=== PATIENT | female | born 1975 | race Caucasian/White ===

== ENCOUNTER 2018-02-16 17:45 | Emergency (ER) | payer OTHER ==
[~2018-02-16] VITALS: Ht 157.5 cm; Wt 59.0 kg
[~2018-02-16 17:45] MED LIST: ALBU.083IS IH; ALBU90I INH; ALBU90OI INH; AMOX500 PO; AZIT250 PO; CLIN150 PO; CODACE30 PO; FLUSAL2505 IH; HYDACE5 PO; PRED10 PO; TIOT18 IH; TRAM50 PO; TRIAOI IH
[2018-02-16 18:29] LABS: BASOPHILS ABSOLUTE AUTO 0.06 K/mm3 (0.00-0.23); BASOPHILS PERCENT AUTO 0 % (0-2); EOSINOPHILS ABSOLUTE AUTO 0.15 K/mm3 (0.00-0.68); EOSINOPHILS PERCENT AUTO 1 % (0-6); Hematocrit 28.1 % (33.0-51.0); Hemoglobin 8.1 g/dL (11.5-16.0); IMMATURE GRAN ABSOLUTE AUTO 0.11 K/mm3 (0.00-0.10); IMMATURE GRAN PERCENT AUTO 1 % (0-1); LYMPHOCYTES ABSOLUTE AUTO 1.95 K/mm3 (0.84-5.20); LYMPHOCYTES PERCENT AUTO 12 % (21-46); MONOCYTES ABSOLUTE AUTO 1.05 K/mm3 (0.16-1.47); MONOCYTES PERCENT AUTO 7 % (4-13); Mean Corpuscular HGB 19.5 pg (26.0-34.0); Mean Corpuscular HGB Conc 28.8 g/dL (31.5-36.5); Mean Corpuscular Volume 68 fL (80-100); Mean Platelet Volume 10.2 fL (9.1-12.4); NEUTROPHILS ABSOLUTE AUTO 12.78 K/mm3 (1.96-9.15); NEUTROPHILS PERCENT AUTO 79 % (41-73); Platelet Count 389 K/mm3 (150-400); RDW Coefficient Variation 16.3 % (11.7-14.2); RDW Standard Deviation 39.7 fL (35.1-46.3); Red Blood Cell Count 4.16 M/mm3 (3.80-5.20)
[2018-02-16 18:48] LABS: Alanine Aminotransfer (ALT/SGP 16 U/L (12-78); Albumin/Globulin Ratio 0.7 (0.8-1.8); Alk Phos 78 U/L (50-136); Anion Gap 8 mmol/L (6-16); Aspartate Aminotrans (AST/SGOT 11 U/L (12-37); Bilirubin, Total 0.1 mg/dL (0.1-1.0); Blood Urea Nitrogen 7 mg/dL (8-24); Bun/Creatinine Ratio 7.9 (12.0-20.0); CO2, Blood 26 mmol/L (21-32); Calcium, Blood 8.9 mg/dL (8.5-10.1); Chloride, Blood 105 mmol/L (98-108); Creatinine, Blood 0.88 mg/dL (0.40-1.00); Globulin, Blood 4.4 g/dL (2.2-4.0); Glomerular Filtration Rate >60 (60-); Glucose, Blood 89 mg/dL (70-99); Potassium, Blood 3.9 mmol/L (3.5-5.5); Sodium, Blood 139 mmol/L (136-145); Total Protein, Blood 7.4 g/dL (6.4-8.2)
[2018-02-16] MEDS ORDERED: Norco 5-325 Ta1 EACH PO (20:30)
[2018-02-16] MEDS ORDERED: Bactrim Ds Tab1 EACH PO (20:40)
[2018-02-16 20:43] LABS: Source, Urine Clean Catch
[2018-02-16 20:45] LABS: Bilirubin, Urine Neg (Neg); Blood, Urine 5+ (Neg); Glucose Qualitative, Urine Neg (Neg); Ketones, Urine Neg (Neg); Leukocyte Esterase, Urine 1+ (Neg); Nitrite, Urine Pos (Neg); Protein, Urine 2+ (Neg); Specific Gravity, Urine 1.025 (1.003-1.022); Urobilinogen, Urine NORM (Normal)
[2018-02-16 20:50] LABS: Appearance, Urine Hazy (Clear); Color, Urine Yellow (P-Yellow)
[2018-02-16 20:51] LABS: Bacteria Many /hpf; Red Blood Cells, Urine Rare /hpf (0-2); Squamous Epithelial Cells Few /hpf (Few)
[2018-02-16 20:52] LABS: Mucus Light (0-Heavy)
== END 2018-02-16 20:56 | disposition home or self-care (01) ==
LOC: ER 17:45
PROVIDERS: Emergency Medicine; Internal Medicine
DX: N94.6 Dysmenorrhea, unspecified (principal); N39.0 Urinary tract infection, site not specified; D64.9 Anemia, unspecified; D72.829 Elevated white blood cell count, unspecified; Z88.5 Allergy status to narcotic agent; Z88.8 Allergy status to other drugs, medicaments and biological substances; Z87.891 Personal history of nicotine dependence
CPT/HCPCS: 36415; 76830; 76856; 80053; 81001; 81025; 85025; 86850; 86900; 86901; 87077; 87086; 87186; 96374; 99284-25; J1885

== ENCOUNTER 2021-04-25 01:01 | Inpatient (IN) | payer OTHER ==
[~2021-04-25] VITALS: Ht 157.5 cm; Wt 64.4 kg
[~2021-04-25 01:01] MED LIST changes: +Bactrim Ds Tab1 EACH PO; +Norco 5-325 Ta1 EACH PO
[2021-04-25 01:26] LABS: Source, Urine Clean Catch
[2021-04-25 01:31] LABS: Bilirubin, Urine Neg (Neg); Blood, Urine Neg (Neg); Glucose Qualitative, Urine Neg (Neg); Ketones, Urine Neg (Neg); Leukocyte Esterase, Urine 1+ (Neg); Nitrite, Urine Pos (Neg); Protein, Urine 1+ (Neg); Specific Gravity, Urine 1.015 (1.003-1.022); Urobilinogen, Urine NORM (Normal)
[2021-04-25 01:32] LABS: Appearance, Urine Hazy (Clear); Color, Urine Yellow (P-Yellow)
[2021-04-25 01:42] LABS: Bacteria Many /hpf; Red Blood Cells, Urine Not Seen /hpf (0-2); Squamous Epithelial Cells Few /hpf (Few)
[2021-04-25 02:01] LABS: Alanine Aminotransfer (ALT/SGP 25 U/L (12-78); Albumin, Blood 3.6 g/dL (3.4-5.0); Albumin/Globulin Ratio 0.8 (0.8-1.8); Alk Phos 77 U/L (50-136); Anion Gap 5 mmol/L (6-16); Aspartate Aminotrans (AST/SGOT 22 U/L (12-37); Bilirubin, Total 0.4 mg/dL (0.1-1.0); Blood Urea Nitrogen 15 mg/dL (8-24); Bun/Creatinine Ratio 16.4 (12.0-20.0); CO2, Blood 26 mmol/L (21-32); Calcium, Blood 9.9 mg/dL (8.5-10.1); Chloride, Blood 105 mmol/L (98-108); Creatinine, Blood 0.91 mg/dL (0.40-1.00); Globulin, Blood 4.5 g/dL (2.2-4.0); Glomerular Filtration Rate >60 (60-); Glucose, Blood 86 mg/dL (70-99); Potassium, Blood 3.5 mmol/L (3.5-5.5); Sodium, Blood 136 mmol/L (136-145); Total Protein, Blood 8.1 g/dL (6.4-8.2)
[2021-04-25 02:03] LABS: BASOPHILS ABSOLUTE AUTO 0.06 K/mm3 (0.00-0.23); BASOPHILS PERCENT AUTO 0 % (0-2); EOSINOPHILS PERCENT AUTO 0 % (0-6); Hematocrit 31.5 % (33.0-51.0); IMMATURE GRAN ABSOLUTE AUTO 0.36 K/mm3 (0.00-0.10); IMMATURE GRAN PERCENT AUTO 2 % (0-1); LYMPHOCYTES ABSOLUTE AUTO 0.96 K/mm3 (0.84-5.20); LYMPHOCYTES PERCENT AUTO 4 % (21-46); MONOCYTES ABSOLUTE AUTO 1.27 K/mm3 (0.16-1.47); MONOCYTES PERCENT AUTO 5 % (4-13); Mean Corpuscular HGB Conc 28.6 g/dL (31.5-36.5); Mean Corpuscular Volume 67 fL (80-100); Mean Platelet Volume 11.1 fL (9.1-12.4); NEUTROPHILS ABSOLUTE AUTO 21.06 K/mm3 (1.96-9.15); NEUTROPHILS PERCENT AUTO 89 % (41-73); Platelet Count 264 K/mm3 (150-400); RDW Standard Deviation 39.8 fL (35.1-46.3); Red Blood Cell Count 4.74 M/mm3 (3.80-5.20); White Blood Cell Count 23.71 K/mm3 (4.00-11.30)
[2021-04-25 03:43] LABS: Influenza A, PCR NEGATIVE (NEGATIVE); Influenza B, PCR NEGATIVE (NEGATIVE); Resp Syncytial Virus, PCR NEGATIVE (NEGATIVE)
[2021-04-25 04:16] LABS: SARS-Cov-2 (COVID-19) PCR, MMC POSITIVE (NEGATIVE)
== END 2021-04-25 10:42 | disposition left against medical advice (07) | DRG 871 ==
LOC: ER 01:01 → ERHOLD 03:11
PROVIDERS: Student in an Organized Health Care Education/Training Program; ADMIT Internal Medicine
PROC: 8E0ZXY6 Isolation (ICD-10-PCS; principal; 2021-04-25)
DX: A41.9 Sepsis, unspecified organism (principal); U07.1 COVID-19; N12 Tubulo-interstitial nephritis, not specified as acute or chronic; I10 Essential (primary) hypertension; D53.9 Nutritional anemia, unspecified; Z28.21 Immunization not carried out because of patient refusal; J45.909 Unspecified asthma, uncomplicated; F17.210 Nicotine dependence, cigarettes, uncomplicated; Z85.41 Personal history of malignant neoplasm of cervix uteri; Z88.5 Allergy status to narcotic agent; Z88.8 Allergy status to other drugs, medicaments and biological substances; Z98.890 Other specified postprocedural states; Z90.89 Acquired absence of other organs
CPT/HCPCS: 0241U; 36415; 74176; 80053; 81001; 83605; 83690; 85025; 87040; 87077; 87086; 87186; 96365; 96375; 99285-25; A9270; G0378; J0696; J1885; J7030

== ENCOUNTER 2021-10-13 20:13 | Inpatient (IN) | payer OTHER ==
[~2021-10-13] VITALS: Ht 157.5 cm; Wt 63.5 kg
[2021-10-13 21:36] LABS: BASOPHILS ABSOLUTE AUTO 0.09 K/mm3 (0.00-0.23); BASOPHILS PERCENT AUTO 0 % (0-2); EOSINOPHILS ABSOLUTE AUTO 0.03 K/mm3 (0.00-0.68); EOSINOPHILS PERCENT AUTO 0 % (0-6); Hematocrit 29.6 % (33.0-51.0); Hemoglobin 8.2 g/dL (11.5-16.0); IMMATURE GRAN ABSOLUTE AUTO 0.19 K/mm3 (0.00-0.10); IMMATURE GRAN PERCENT AUTO 1 % (0-1); LYMPHOCYTES ABSOLUTE AUTO 1.22 K/mm3 (0.84-5.20); LYMPHOCYTES PERCENT AUTO 5 % (21-46); MONOCYTES ABSOLUTE AUTO 1.74 K/mm3 (0.16-1.47); MONOCYTES PERCENT AUTO 8 % (4-13); Mean Corpuscular HGB 18.2 pg (26.0-34.0); Mean Corpuscular HGB Conc 27.7 g/dL (31.5-36.5); Mean Corpuscular Volume 66 fL (80-100); Mean Platelet Volume 10.4 fL (9.1-12.4); NEUTROPHILS ABSOLUTE AUTO 19.59 K/mm3 (1.96-9.15); NEUTROPHILS PERCENT AUTO 86 % (41-73); Platelet Count 398 K/mm3 (150-400); RDW Coefficient Variation 18.9 % (11.7-14.2); Red Blood Cell Count 4.51 M/mm3 (3.80-5.20); White Blood Cell Count 22.86 K/mm3 (4.00-11.30)
[2021-10-13 22:04] LABS: Alanine Aminotransfer (ALT/SGP 26 U/L (12-78); Albumin, Blood 3.6 g/dL (3.4-5.0); Albumin/Globulin Ratio 0.8 (0.8-1.8); Alk Phos 80 U/L (50-136); Anion Gap 5 mmol/L (6-16); Aspartate Aminotrans (AST/SGOT 13 U/L (12-37); Bilirubin, Total 0.4 mg/dL (0.1-1.0); Blood Urea Nitrogen 12 mg/dL (8-24); Bun/Creatinine Ratio 14.1 (12.0-20.0); CO2, Blood 27 mmol/L (21-32); Calcium, Blood 9.8 mg/dL (8.5-10.1); Chloride, Blood 102 mmol/L (98-108); Creatinine, Blood 0.85 mg/dL (0.40-1.00); Globulin, Blood 4.4 g/dL (2.2-4.0); Glomerular Filtration Rate >60 (60-); Glucose, Blood 119 mg/dL (70-99); Potassium, Blood 3.9 mmol/L (3.5-5.5); Sodium, Blood 134 mmol/L (136-145)
[2021-10-13 23:07] LABS: Source, Urine Clean Catch
[2021-10-13 23:12] LABS: Bilirubin, Urine Neg (Neg); Blood, Urine 2+ (Neg); Glucose Qualitative, Urine Neg (Neg); Ketones, Urine Neg (Neg); Leukocyte Esterase, Urine Neg (Neg); Nitrite, Urine Neg (Neg); Protein, Urine Neg (Neg); Urobilinogen, Urine NORM (Normal)
[2021-10-13 23:48] LABS: Appearance, Urine Clear (Clear); Color, Urine Yellow (P-Yellow)
[2021-10-13 23:50] LABS: Bacteria Many /hpf; Red Blood Cells, Urine 0-2 /hpf (0-2); Squamous Epithelial Cells Few /hpf (Few); White Blood Cells, Urine Rare /hpf (0-5)
--- NOTE | 2021-10-14 05:21 | NUR ---
PT ARRIVED TO FLOOR VIA GURNEY AT 0430. PT MOANING STATES SHE IS IN PAIN. TRANSFERS TO BED SBA. ORIENTED TO ROOM. VSS. BOTH IV ACCESSES INFILTRATED, SEAN FROM ICU ABLE TO START A POWER GLIDE IN [place]. FLUIDS RUNNING PER EMAR. PT APPEARS TO BE SLEEPING AT THIS TIME. BED ALARM IS ON, CALL LIGHT IN REACH WILL MONTIOR FOR CHANGES, AND ORDER UPDATES.
--- NOTE | 2021-10-14 05:52 | NUR ---
UPDATED NOTED, PATIENT APPEARS TO BE RESTING, IN NO APPARENT DISTRESS AT THIS TIME. LR BOLUS RUNNING. WILL MEDICATE PRN FOR PAIN.
--- NOTE | 2021-10-14 06:34 | NUR ---
PT NEW ADMIT THIS AM FOR OVARIAN ABCESS. PT HR TACHY 100 PER TELE MONITOR, PT DENIES CP/PRESSURE. ABD MOD DISTENDED. PT REP PAIN+PRESSURE IN RLQ. PT SALINA FEW SIPS OF WATER, DENEIS N/V, IVF CONT. PAIN MGD PER EMAR. THIS RN AT BEDSIDE W/NUIRSING STUDENT ASSESSMENT, AGREE W/DOCUMENTATION.
[2021-10-14 08:57] LABS: BASOPHILS ABSOLUTE AUTO 0.05 K/mm3 (0.00-0.23); BASOPHILS PERCENT AUTO 0 % (0-2); EOSINOPHILS ABSOLUTE AUTO 0.01 K/mm3 (0.00-0.68); EOSINOPHILS PERCENT AUTO 0 % (0-6); Hematocrit 22.4 % (33.0-51.0); Hemoglobin 6.4 g/dL (11.5-16.0); IMMATURE GRAN ABSOLUTE AUTO 0.36 K/mm3 (0.00-0.10); IMMATURE GRAN PERCENT AUTO 2 % (0-1); LYMPHOCYTES ABSOLUTE AUTO 1.24 K/mm3 (0.84-5.20); LYMPHOCYTES PERCENT AUTO 5 % (21-46); MONOCYTES ABSOLUTE AUTO 1.91 K/mm3 (0.16-1.47); MONOCYTES PERCENT AUTO 8 % (4-13); Mean Corpuscular HGB 18.6 pg (26.0-34.0); Mean Corpuscular HGB Conc 28.6 g/dL (31.5-36.5); Mean Corpuscular Volume 65 fL (80-100); Mean Platelet Volume 10.3 fL (9.1-12.4); NEUTROPHILS ABSOLUTE AUTO 19.62 K/mm3 (1.96-9.15); NEUTROPHILS PERCENT AUTO 85 % (41-73); Platelet Count 279 K/mm3 (150-400); RDW Coefficient Variation 18.7 % (11.7-14.2); RDW Standard Deviation 44.2 fL (35.1-46.3); Red Blood Cell Count 3.44 M/mm3 (3.80-5.20); White Blood Cell Count 23.19 K/mm3 (4.00-11.30)
[2021-10-14 09:16] LABS: Anion Gap 4 mmol/L (6-16); Blood Urea Nitrogen 8 mg/dL (8-24); Bun/Creatinine Ratio 12.3 (12.0-20.0); CO2, Blood 26 mmol/L (21-32); Calcium, Blood 9.2 mg/dL (8.5-10.1); Chloride, Blood 107 mmol/L (98-108); Creatinine, Blood 0.65 mg/dL (0.40-1.00); Glomerular Filtration Rate >60 (60-); Glucose, Blood 106 mg/dL (70-99); Potassium, Blood 4.2 mmol/L (3.5-5.5); Sodium, Blood 137 mmol/L (136-145)
[2021-10-14 15:17] LABS: BASOPHILS ABSOLUTE AUTO 0.06 K/mm3 (0.00-0.23); BASOPHILS PERCENT AUTO 0 % (0-2); EOSINOPHILS ABSOLUTE AUTO 0.02 K/mm3 (0.00-0.68); EOSINOPHILS PERCENT AUTO 0 % (0-6); Hematocrit 21.7 % (33.0-51.0); Hemoglobin 6.1 g/dL (11.5-16.0); IMMATURE GRAN ABSOLUTE AUTO 0.48 K/mm3 (0.00-0.10); IMMATURE GRAN PERCENT AUTO 2 % (0-1); LYMPHOCYTES ABSOLUTE AUTO 1.23 K/mm3 (0.84-5.20); LYMPHOCYTES PERCENT AUTO 5 % (21-46); MONOCYTES ABSOLUTE AUTO 1.77 K/mm3 (0.16-1.47); MONOCYTES PERCENT AUTO 8 % (4-13); Mean Corpuscular HGB 18.5 pg (26.0-34.0); Mean Corpuscular HGB Conc 28.1 g/dL (31.5-36.5); Mean Corpuscular Volume 66 fL (80-100); Mean Platelet Volume 10.6 fL (9.1-12.4); NEUTROPHILS ABSOLUTE AUTO 19.51 K/mm3 (1.96-9.15); NEUTROPHILS PERCENT AUTO 85 % (41-73); Platelet Count 261 K/mm3 (150-400); RDW Coefficient Variation 18.7 % (11.7-14.2); Red Blood Cell Count 3.29 M/mm3 (3.80-5.20); White Blood Cell Count 23.07 K/mm3 (4.00-11.30)
--- NOTE | 2021-10-14 18:07 | NUR ---
SHIFT SUMMARY A/O X4. IND IN RM. ABDOMEN MODERATLY DISTENDED, PT REPORTS ABDOMEN FEELING ABOUT THE SAME WHEN ADMITTED. PAIN MEDICATION GIVEN 1X THIS AM, PT HAS BEEN SLEEPING MOST OF THE DAY. PHYSICIAN ORDERED 1X UNIT OF PACKED RED BLOOD CELLS THIS PM DUE TO LOW H&H, AWAITING BLOOD BANK AT THIS TIME. TELE DC'D. VOIDING AND TOLERATING PO INTAKE. PT REPORTS LESS VAGINAL BLEEDING THAN LAST NIGHT. WILL CONTINUE TO MONITOR AND REPORT TO ONCOMING RN.
--- NOTE | 2021-10-14 19:39 | NUR ---
TEMP: PT TEMP NOTED ELEVATED 100.1. SCHEDULED TYLENOL PREVIOUSLY GIVEN. DR ABRAHAM NOTIFIED, VITALS, MEDS AN BLOOD ORDER REV. OK TO GIVE PRBC SCHEDULED AND UPDATE UPDATE DR Noonan/LABS AFTER BLOOD COMPLETED.
--- NOTE | 2021-10-14 23:01 | NUR ---
DR ABRAHAM CALLED IN FOR UPDATE. ORDER TO ONLY INFUSE 1 UNIT OF PRBC TONIGHT AND REPEAT LABS IN AM.
[2021-10-15 05:46] LABS: BASOPHILS ABSOLUTE AUTO 0.08 K/mm3 (0.00-0.23); BASOPHILS PERCENT AUTO 0 % (0-2); EOSINOPHILS ABSOLUTE AUTO 0.08 K/mm3 (0.00-0.68); EOSINOPHILS PERCENT AUTO 0 % (0-6); Hematocrit 23.4 % (33.0-51.0); Hemoglobin 6.7 g/dL (11.5-16.0); IMMATURE GRAN ABSOLUTE AUTO 1.67 K/mm3 (0.00-0.10); IMMATURE GRAN PERCENT AUTO 7 % (0-1); LYMPHOCYTES ABSOLUTE AUTO 1.38 K/mm3 (0.84-5.20); LYMPHOCYTES PERCENT AUTO 6 % (21-46); MONOCYTES ABSOLUTE AUTO 1.99 K/mm3 (0.16-1.47); MONOCYTES PERCENT AUTO 8 % (4-13); Mean Corpuscular HGB 19.6 pg (26.0-34.0); Mean Corpuscular HGB Conc 28.6 g/dL (31.5-36.5); Mean Corpuscular Volume 68 fL (80-100); Mean Platelet Volume 10.4 fL (9.1-12.4); NEUTROPHILS ABSOLUTE AUTO 19.72 K/mm3 (1.96-9.15); NEUTROPHILS PERCENT AUTO 79 % (41-73); Platelet Count 227 K/mm3 (150-400); RDW Coefficient Variation 20.6 % (11.7-14.2); Red Blood Cell Count 3.42 M/mm3 (3.80-5.20); White Blood Cell Count 24.92 K/mm3 (4.00-11.30)
[2021-10-15 06:16] LABS: Alanine Aminotransfer (ALT/SGP 15 U/L (12-78); Albumin, Blood 2.3 g/dL (3.4-5.0); Albumin/Globulin Ratio 0.7 (0.8-1.8); Alk Phos 64 U/L (50-136); Anion Gap 5 mmol/L (6-16); Aspartate Aminotrans (AST/SGOT 8 U/L (12-37); Bilirubin, Total 0.5 mg/dL (0.1-1.0); Blood Urea Nitrogen 8 mg/dL (8-24); Bun/Creatinine Ratio 12.7 (12.0-20.0); CO2, Blood 23 mmol/L (21-32); Calcium, Blood 8.8 mg/dL (8.5-10.1); Chloride, Blood 111 mmol/L (98-108); Creatinine, Blood 0.63 mg/dL (0.40-1.00); Globulin, Blood 3.4 g/dL (2.2-4.0); Glomerular Filtration Rate >60 (60-); Glucose, Blood 94 mg/dL (70-99); Potassium, Blood 3.8 mmol/L (3.5-5.5); Sodium, Blood 139 mmol/L (136-145)
[2021-10-15 06:29] LABS: Total Protein, Blood 5.7 g/dL (6.4-8.2)
--- NOTE | 2021-10-15 07:25 | NUR ---
PT VSS IMPROVED AFTER UNIT OF BLOOD GIVEN. APPEARED TO SLEEP FOR MAJORITY OF NIGHT, AWAKENS EASILY TO VERBAL STIMULI. PT REP ABD PAIN IMPROVING, PAIN MGD W/TORADOL W/REP RELIEF. PT DENIES PAIN W/VOIDS. PT DRANK SOME CRANBERRY JUICE AND ATE YOGURT, DID REP EMESIS THIS AM. IVF AND ABX CONT PER ORDERS AM LABS REVIEWED W/ONCOMING RN.
--- NOTE | 2021-10-15 10:21 | NUR ---
AM MEDS PT EXPERIENCED N/V THIS AM. REFUSED ZOFRAN. ATTEMPTED TO GIVE PO MORNING MEDS INCLUDING ANTIBIOTICS x 3; CONTINUES TO DECLINE.
[2021-10-15 13:11] LABS: BASOPHILS ABSOLUTE AUTO 0.08 K/mm3 (0.00-0.23); BASOPHILS PERCENT AUTO 0 % (0-2); EOSINOPHILS ABSOLUTE AUTO 0.07 K/mm3 (0.00-0.68); EOSINOPHILS PERCENT AUTO 0 % (0-6); Hematocrit 29.7 % (33.0-51.0); Hemoglobin 8.7 g/dL (11.5-16.0); IMMATURE GRAN PERCENT AUTO 5 % (0-1); LYMPHOCYTES PERCENT AUTO 4 % (21-46); MONOCYTES ABSOLUTE AUTO 2.51 K/mm3 (0.16-1.47); MONOCYTES PERCENT AUTO 9 % (4-13); Mean Corpuscular HGB 20.8 pg (26.0-34.0); Mean Corpuscular HGB Conc 29.3 g/dL (31.5-36.5); Mean Corpuscular Volume 71 fL (80-100); NEUTROPHILS ABSOLUTE AUTO 24.21 K/mm3 (1.96-9.15); NEUTROPHILS PERCENT AUTO 82 % (41-73); Platelet Count 228 K/mm3 (150-400); RDW Coefficient Variation 22.5 % (11.7-14.2); RDW Standard Deviation 56.2 fL (35.1-46.3); Red Blood Cell Count 4.18 M/mm3 (3.80-5.20); White Blood Cell Count 29.67 K/mm3 (4.00-11.30)
--- NOTE | 2021-10-15 19:33 | NUR ---
SHIFT SUMMARY CONTINUES TO BE QUIET, BUT REPORTS IMPROVED PAIN MANAGEMENT. INT NAUSEA w/ ONLY EMESIS THIS AM. URINE LIGHTENING SLIGHTLY. TAKING BITES & SIPS OF FLUIDS. 1 UNIT PRBC GIVEN w/ IMPROVED H&H. PT REPORTS FEELING LESS TIRED THIS AFTERNON. LIGHT SPOTTING TO AKIRA PADS.
[2021-10-16 01:08] LABS: CHLAMYDIA TRACHOMATIS, NAA Negative (Negative)
--- NOTE | 2021-10-16 03:59 | NUR ---
SHIFT SUMMARY, PT AOX4, ABLE TO TOLERATE PO INTAKE OF CLEARS. DENIES N/V. PATIENT RATES ABD PAIN A 7/10, MEDICATED PER EMAR. PT AMBULATES IN ROOM INDEPENDENTLY. SIGNIFIGANT OTHER IN TO VISIT AT SHIFT CHANGE. ABLE TO PASS GAS, NO BM MEDICATED WITH MILK OF MAG AND STOOL SOFTENER. VOIDING THROUGHOUT SHIFT, URINE IS DARK COLORED. PT REPORTS SCANT AMOUNT OF VAGINAL BLEEDING. AKIRA PADS IN ROOM. VSS STABLE, CALL LIGHT IN REACH, WILL MONITOR FOR CHANGES.
[2021-10-16 04:54] LABS: BASOPHILS ABSOLUTE AUTO 0.05 K/mm3 (0.00-0.23); BASOPHILS PERCENT AUTO 0 % (0-2); EOSINOPHILS ABSOLUTE AUTO 0.11 K/mm3 (0.00-0.68); EOSINOPHILS PERCENT AUTO 1 % (0-6); Hematocrit 25.7 % (33.0-51.0); Hemoglobin 7.6 g/dL (11.5-16.0); IMMATURE GRAN ABSOLUTE AUTO 0.82 K/mm3 (0.00-0.10); IMMATURE GRAN PERCENT AUTO 4 % (0-1); LYMPHOCYTES ABSOLUTE AUTO 1.19 K/mm3 (0.84-5.20); LYMPHOCYTES PERCENT AUTO 5 % (21-46); MONOCYTES ABSOLUTE AUTO 1.77 K/mm3 (0.16-1.47); MONOCYTES PERCENT AUTO 8 % (4-13); Mean Corpuscular HGB 20.5 pg (26.0-34.0); Mean Corpuscular HGB Conc 29.6 g/dL (31.5-36.5); Mean Corpuscular Volume 70 fL (80-100); Mean Platelet Volume 10.5 fL (9.1-12.4); NEUTROPHILS PERCENT AUTO 82 % (41-73); Platelet Count 225 K/mm3 (150-400); RDW Standard Deviation 53.8 fL (35.1-46.3); White Blood Cell Count 21.84 K/mm3 (4.00-11.30)
--- NOTE | 2021-10-16 06:29 | NUR ---
DR STEVE CALLED IN FOR UPDATE. PT VS, LABS, PAIN AND I/O REVIEWED. NO NEW ORDERS.
--- NOTE | 2021-10-16 06:33 | NUR ---
PT VSS T/O NIGHT. PAIN MGD W/TYLENOL AND TORADOL W/REP RELIEF. PT DECLINED NARCOTIC PAIN MEDS. PT SALINA SIPS OF CL, NO SIG PO. BT HYPER ACTIVE THIS AM, PT REP NO FLATUS AND BM YET. URINE DARK ROCHELLE, VAGINAL BLEEDING DECREASING, PT CHANGED AKIRA PAD X2. IVF AND ABX CONT PER ORDERS.
[2021-10-16] MEDS ORDERED: DOCU100 PO (09:44)
[2021-10-16] MEDS ORDERED: ACET500 PO (09:44)
[2021-10-16] MEDS ORDERED: DOXY100 PO (09:45)
[2021-10-16] MEDS ORDERED: METR500 PO (09:46)
[2021-10-16] MEDS ORDERED: IBUP800 PO (09:47)
[2021-10-16] MEDS ORDERED: FERSU300 PO (09:47)
[2021-10-16] MEDS ORDERED: ONDA4ODT MM (09:47)
--- NOTE | 2021-10-16 10:29 | NUR ---
DISCHARGE MINIMAL ABDOMINAL PAIN, WELL MANAGED W/ TYLENOL PER EMAR. DENIES N/V, TOLERATING PO DIET. VOIDING WELL, MINIMAL VAGINAL BLEEDING. AMBULATING WELL INDEPENDENTLY. DISCUSSED DISCHARGE INSTRUCTIONS & SENT W/ PATIENT. PATIENT DECLINED W/C, WALKED OUT W/ FAMILY MEMBER.
== END 2021-10-16 10:26 | disposition home or self-care (01) | DRG 872 ==
LOC: ER 20:13 → ERHOLD 20:14 → SURS 20:14
PROVIDERS: Obstetrics & Gynecology; Physician Assistant; Student in an Organized Health Care Education/Training Program; ADMIT Obstetrics & Gynecology
PROC: 30233N1 Transfusion of Nonautologous Red Blood Cells into Peripheral Vein, Percutaneous Approach (ICD-10-PCS; principal; 2021-10-14)
PROC: 3E03329 Introduction of Other Anti-infective into Peripheral Vein, Percutaneous Approach (ICD-10-PCS; 2021-10-14)
DX: A41.9 Sepsis, unspecified organism (principal); N12 Tubulo-interstitial nephritis, not specified as acute or chronic; N39.0 Urinary tract infection, site not specified; N70.92 Oophoritis, unspecified; J45.909 Unspecified asthma, uncomplicated; N94.6 Dysmenorrhea, unspecified; K59.09 Other constipation; I10 Essential (primary) hypertension; F17.200 Nicotine dependence, unspecified, uncomplicated; B96.20 Unspecified Escherichia coli [E. coli] as the cause of diseases classified elsewhere; Z86.16 Personal history of COVID-19; Z85.41 Personal history of malignant neoplasm of cervix uteri; Z90.89 Acquired absence of other organs; Z98.890 Other specified postprocedural states
CPT/HCPCS: 36415; 36430; 74177; 76830; 76856; 80048; 80053; 81001; 81025; 83605; 83690; 85025; 86850; 86900; 86901; 86923; 87040; 87077; 87086; 87186; 87491; 87591; 96365; 96366; 96367; 96375; 99285-25; A9270; C1751; G0378; J0696; J1170; J1885; J2270; J2765; J2916; J7030; J7040; J7050; J7120; P9016; Q9967

== ENCOUNTER → 2021-10-24 | Outpatient (CLI) | payer OTHER ==
[~2021-10-24] MED LIST changes: +ACET500 PO; +DOCU100 PO; +DOXY100 PO; +FERSU300 PO; +IBUP800 PO; +METR500 PO; +ONDA4ODT MM
[2021-10-27 15:07] LABS: HPV 16 Negative (Negative); HPV 18 Negative (Negative); HPV OTHER HR TYPES Negative (Negative)
== END | disposition home or self-care (01) ==
LOC: LAB 10:00 → LAB SHORT 10:00
PROVIDERS: Obstetrics & Gynecology
DX: Z01.419 Encounter for gynecological examination (general) (routine) without abnormal findings (principal)
CPT/HCPCS: 87624; G0123

== ENCOUNTER 2023-04-14 11:11 | Emergency (ER) | payer OTHER ==
[~2023-04-14] VITALS: Ht 157.5 cm; Wt 61.2 kg
[2023-04-14 12:45] LABS: BASOPHILS ABSOLUTE AUTO 0.09 K/mm3 (0.00-0.23); BASOPHILS PERCENT AUTO 1 % (0-2); EOSINOPHILS ABSOLUTE AUTO 0.18 K/mm3 (0.00-0.68); EOSINOPHILS PERCENT AUTO 2 % (0-6); Hematocrit 29.9 % (33.0-51.0); Hemoglobin 8.2 g/dL (11.5-16.0); IMMATURE GRAN ABSOLUTE AUTO 0.03 K/mm3 (0.00-0.10); IMMATURE GRAN PERCENT AUTO 0 % (0-1); LYMPHOCYTES PERCENT AUTO 16 % (21-46); MONOCYTES ABSOLUTE AUTO 1.01 K/mm3 (0.16-1.47); MONOCYTES PERCENT AUTO 11 % (4-13); Mean Corpuscular HGB 18.3 pg (26.0-34.0); Mean Corpuscular HGB Conc 27.4 g/dL (31.5-36.5); Mean Corpuscular Volume 67 fL (80-100); Mean Platelet Volume 10.8 fL (9.1-12.4); NEUTROPHILS PERCENT AUTO 69 % (41-73); Platelet Count 435 K/mm3 (150-400); RDW Coefficient Variation 16.2 % (11.7-14.2); RDW Standard Deviation 38.6 fL (35.1-46.3); Red Blood Cell Count 4.48 M/mm3 (3.80-5.20); White Blood Cell Count 9.21 K/mm3 (4.00-11.30)
[2023-04-14 13:13] LABS: Albumin, Blood 3.8 g/dL (3.4-5.0); Albumin/Globulin Ratio 0.9 (0.8-1.8); Bilirubin, Total 0.4 mg/dL (0.1-1.0); Calcium, Blood 9.9 mg/dL (8.5-10.1); Globulin, Blood 4.1 g/dL (2.2-4.0); Potassium, Blood 3.9 mmol/L (3.5-5.5); Total Protein, Blood 7.9 g/dL (6.4-8.2)
[2023-04-14] MEDS ORDERED: SUCR1 PO (16:11)
[2023-04-14] MEDS ORDERED: ONDA4ODT MM (16:11)
[2023-04-14] MEDS ORDERED: FAMO20 PO (16:11)
[2023-04-14 17:00] VITALS: BP 152/99
== END 2023-04-14 17:10 | disposition home or self-care (01) ==
LOC: ER 11:11
PROVIDERS: Physician Assistant
DX: R10.13 Epigastric pain (principal); R11.2 Nausea with vomiting, unspecified; J45.909 Unspecified asthma, uncomplicated; Z88.4 Allergy status to anesthetic agent; Z88.5 Allergy status to narcotic agent; Z79.899 Other long term (current) drug therapy
CPT/HCPCS: 76705; 80053; 81025; 83690; 85025; 93005; 93010; 96374; 96375; 99284-25; A9270; C9113; J1885; J2405

== ENCOUNTER → 2024-10-12 | Outpatient (CLI) | payer OTHER ==
[~2024-10-12] MED LIST changes: +FAMO20 PO; +SUCR1 PO
== END ==
LOC: LAB SHORT 15:58 → LAB 15:58
DX: N39.0 Urinary tract infection, site not specified (principal)
CPT/HCPCS: 87077; 87086; 87186